=== PATIENT | male | born 1940 | race Caucasian/White ===

== ENCOUNTER 2023-04-15 10:43 | Inpatient (IN) | payer MEDICAID, MEDICARE, OTHER, SELFPAY ==
[~2023-04-15] VITALS: Ht 172.7 cm; Wt 77.3 kg
[2023-04-15 12:29] LABS: HEMATOCRIT 27.3 % (42.0-52.0); HEMOGLOBIN 8.8 g/dl (13.5-17.5); MEAN CORPUSCULAR HEMOGLOBIN 32.5 pg (27.0-33.0); MEAN CORPUSCULAR HGB CONC 32.2 g/dl (32.0-36.5); MEAN CORPUSCULAR VOLUME 100.7 fl (80.0-96.0); PLATELET COUNT, AUTOMATED 217 10^3/uL (150-450); RED BLOOD COUNT 2.71 10^6/uL (4.30-6.10); WHITE BLOOD COUNT 7.6 10^3/uL (4.0-10.0)
[2023-04-15 12:49] LABS: ALBUMIN 2.8 G/DL (3.2-5.2); BILIRUBIN,TOTAL 0.3 MG/DL (0.3-1.2); CALCIUM LEVEL 8.6 MG/DL (8.3-10.6); CREATININE FOR GFR 6.03 MG/DL (0.70-1.30); GLOMERULAR FILTRATION RATE 9.6 (>35); POTASSIUM SERUM 4.9 MMOL/L (3.5-5.1); TOTAL PROTEIN 6.3 G/DL (5.7-8.2)
[2023-04-15] MEDS ORDERED: MED REC IN PROGRESS XX SCH (13:25)
[2023-04-15 13:32] LABS: APPEARANCE, URINE HAZY (CLEAR); BACTERIA, URINE AUTO 1+ (NEGATIVE); BILIRUBIN, URINE AUTO NEGATIVE (NEGATIVE); BLOOD, URINE BLOOD 2+ (NEGATIVE); COLOR, URINE YELLOW (YELLOW); GLUCOSE, URINE (UA) AUTO NEGATIVE (NEGATIVE); KETONE, URINE AUTO NEGATIVE (NEGATIVE); LEUKOCYTE ESTERASE, URINE AUTO 2+ (NEGATIVE); NITRITE, URINE AUTO NEGATIVE (NEGATIVE); PROTEIN, URINE AUTO 3+ mg/dL (NEGATIVE); RBC, URINE AUTO 15 /HPF (0-3); SPECIFIC GRAVITY URINE AUTO 1.016 (1.002-1.035); SQUAMOUS EPITHELIAL CELL UR AU 0 /HPF (0-6); UROBILINOGEN, URINE AUTO 0.2 mg/dL (0.0-2.0); WBC, URINE AUTO 141 /HPF (0-3)
[2023-04-15] MEDS ORDERED: SILV50CR TOP (14:04)
[2023-04-15] MEDS ORDERED: GABA-1171 PO (14:04)
[2023-04-15] MEDS ORDERED: SM C81CH2 PO (14:04)
[2023-04-15] MEDS ORDERED: ACET650T15 PO (14:04)
[2023-04-15] MEDS ORDERED: SODI650T PO (14:04)
[2023-04-15] MEDS ORDERED: AMLO1TAB24 PO (14:04)
[2023-04-15] MEDS ORDERED: CARV3.12 PO (14:04)
[2023-04-15] MEDS ORDERED: ATOR40TA75 PO (14:04)
[2023-04-15] MEDS ORDERED: HOME MED LIST COMPLETE! XX SCH (14:10)
[2023-04-15 15:17] LABS: CK-MB VALUE MASS 1.5 NG/ML (<3.6)
[2023-04-15 15:22] LABS: FERRITIN 73.1 NG/ML (10.5-307.3)
[2023-04-15 15:30] LABS: MB/CK RELATIVE INDEX 2.41 (< OR =4); PERCENT SATURATION 25.3 % (19.7-50.0)
[2023-04-15] MEDS: cefTRIAXone SOD 1 GM in D5W MINI-BAG PLUS 50 ML IV SCH (16:03)
[2023-04-15 16:35] LABS: THYROXINE (T4) 7.9 UG/DL (4.5-10.9)
[2023-04-15 16:36] LABS: T UPTAKE 37.6 % (22.5-37.0); THYROID STIMULATING HORMONE 3.012 uIU/ML (0.55-4.78)
[2023-04-15 20:30] VITALS: BP 177/84; TEMP 97.3; O2SAT 95
[2023-04-15] MEDS: ACETAMINOPHEN 650MG ER TAB (TYLENOL ARTHRITIS) PO SCH (21:09)
[2023-04-15] MEDS: SODIUM BICARBONATE 325 MG TAB PO SCH (21:09)
[2023-04-15] MEDS: GABAPENTIN 100 MG CAP PO SCH (21:10)
[2023-04-15] MEDS: CARVedilol 3.125 MG TAB PO SCH (21:10)
[2023-04-16 06:00] VITALS: BP 165/89; TEMP 98.6; O2SAT 93
[2023-04-16 06:30] LABS: HEMATOCRIT 26.8 % (42.0-52.0); HEMOGLOBIN 8.7 g/dl (13.5-17.5); MEAN CORPUSCULAR HEMOGLOBIN 32.5 pg (27.0-33.0); MEAN CORPUSCULAR HGB CONC 32.5 g/dl (32.0-36.5); PLATELET COUNT, AUTOMATED 194 10^3/uL (150-450); RED BLOOD COUNT 2.68 10^6/uL (4.30-6.10); WHITE BLOOD COUNT 5.7 10^3/uL (4.0-10.0)
[2023-04-16 06:50] LABS: CALCIUM LEVEL 8.4 MG/DL (8.3-10.6); CREATININE FOR GFR 6.04 MG/DL (0.70-1.30); GLOMERULAR FILTRATION RATE 9.6 (>35); POTASSIUM SERUM 4.9 MMOL/L (3.5-5.1)
[2023-04-16 08:11] VITALS: BP 170/82
[2023-04-16] MEDS: GABAPENTIN 100 MG CAP PO SCH ×3 (08:37→20:35)
[2023-04-16] MEDS: SODIUM BICARBONATE 325 MG TAB PO SCH ×3 (08:38→20:35)
[2023-04-16] MEDS: ACETAMINOPHEN 650MG ER TAB (TYLENOL ARTHRITIS) PO SCH ×2 (08:38→20:36)
[2023-04-16] MEDS: ATORVASTATIN 20 MG TAB PO SCH (08:38)
[2023-04-16] MEDS: amLODIPine 5 MG TAB PO SCH (08:38)
[2023-04-16] MEDS: ASPIRIN 81MG CHEW TABLET PO SCH (08:38)
[2023-04-16] MEDS: CARVedilol 3.125 MG TAB PO SCH ×2 (08:38→20:35)
[2023-04-16 10:28] VITALS: BP 144/70
[2023-04-16 12:22] LABS: HEPATITIS B CORE ANTIBODY IGM NEGATIVE (NEGATIVE)
[2023-04-16 14:00] VITALS: BP 140/70; TEMP 97.7; O2SAT 93
[2023-04-16] MEDS: cefTRIAXone SOD 1 GM in D5W MINI-BAG PLUS 50 ML IV SCH (16:44)
[2023-04-16 21:36] VITALS: BP 142/76; TEMP 97.9; O2SAT 95
[2023-04-17 05:20] VITALS: BP 158/84; TEMP 97.9; O2SAT 93
[2023-04-17 06:20] LABS: HEMATOCRIT 25.6 % (42.0-52.0); HEMOGLOBIN 8.3 g/dl (13.5-17.5); MEAN CORPUSCULAR HEMOGLOBIN 32.7 pg (27.0-33.0); MEAN CORPUSCULAR HGB CONC 32.4 g/dl (32.0-36.5); MEAN CORPUSCULAR VOLUME 100.8 fl (80.0-96.0); PLATELET COUNT, AUTOMATED 196 10^3/uL (150-450); RED BLOOD COUNT 2.54 10^6/uL (4.30-6.10); WHITE BLOOD COUNT 6.4 10^3/uL (4.0-10.0)
[2023-04-17 06:43] LABS: CALCIUM LEVEL 8.2 MG/DL (8.3-10.6); CREATININE FOR GFR 6.02 MG/DL (0.70-1.30); GLOMERULAR FILTRATION RATE 9.6 (>35); INR 1.02; POTASSIUM SERUM 5.1 MMOL/L (3.5-5.1); PROTHROMBIN TIME 13.1 SECONDS (12.5-14.5)
[2023-04-17 06:44] LABS: PARTIAL THROMBOPLASTIN TIME 34.6 SECONDS (24.8-34.2)
[2023-04-17] MEDS ORDERED: LIDOCAINE W/EPINEPHRINE 1% 20ML VIAL As Ordered ONE (07:54)
[2023-04-17] MEDS ORDERED: MIDAZOLAM INJ 2MG/2ML VIAL As Ordered ONE (07:54)
[2023-04-17] MEDS ORDERED: HEPARIN 1,000UNITS/ML 10ML VIAL (FOR RADIOLOGY & DIALYSIS ONLY) As Ordered ONE (07:54)
[2023-04-17] MEDS ORDERED: fentaNYL 100 MCG/2 ML INJECTION As Ordered ONE (07:54)
[2023-04-17] MEDS ORDERED: ceFAZolin SOD 2 GM in IV 1 EA IV ONE (07:55)
[2023-04-17] MEDS ORDERED: ceFAZolin 2 GM/D5W 50 ML IV BAG As Ordered ONE (07:55)
[2023-04-17] MEDS ORDERED: hydrALAZINE 20MG/ML 1ML VIAL As Ordered ONE (08:13)
[2023-04-17] MEDS ORDERED: **hydrALAZINE** 10 MG TAB PO SCH (09:00)
[2023-04-17] MEDS ORDERED: cloNIDine 0.1MG TABLET PO ONE (09:20)
[2023-04-17] MEDS: ASPIRIN 81MG CHEW TABLET PO SCH (09:25)
[2023-04-17] MEDS: SODIUM BICARBONATE 325 MG TAB PO SCH (09:25)
[2023-04-17] MEDS: amLODIPine 5 MG TAB PO SCH (09:25)
[2023-04-17] MEDS: ATORVASTATIN 20 MG TAB PO SCH (09:25)
[2023-04-17] MEDS: CARVedilol 3.125 MG TAB PO SCH ×2 (09:26→20:26)
[2023-04-17] MEDS: GABAPENTIN 100 MG CAP PO SCH ×3 (09:26→20:25)
[2023-04-17] MEDS: ACETAMINOPHEN 650MG ER TAB (TYLENOL ARTHRITIS) PO SCH ×2 (09:26→20:25)
[2023-04-17] MEDS ORDERED: HEPARIN 1,000UNITS/ML 10ML VIAL (FOR RADIOLOGY & DIALYSIS ONLY) IV PRN (10:00)
[2023-04-17] MEDS ORDERED: HEPARIN 1,000UNITS/ML 10ML VIAL (FOR RADIOLOGY & DIALYSIS ONLY) XX SCH (10:00)
[2023-04-17] MEDS ORDERED: SODIUM CHLORIDE 0.9% 1000ML IV PRN (10:00)
[2023-04-17 13:08] LABS: HEPATITIS B CORE ANTIBODY IGG Negative (Negative); HEPATITIS C QUANTITATION HCV Not Detected IU/mL (.)
[2023-04-17 14:00] VITALS: BP 118/57; TEMP 97.7; O2SAT 94
[2023-04-17] MEDS: cefTRIAXone SOD 1 GM in D5W MINI-BAG PLUS 50 ML IV SCH (17:18)
[2023-04-17 20:07] VITALS: BP 133/68
[2023-04-17 21:00] VITALS: BP 138/66; TEMP 97.5; O2SAT 95
[2023-04-18 05:24] VITALS: BP 172/90
[2023-04-18] MEDS: GABAPENTIN 100 MG CAP PO SCH ×3 (05:39→21:31)
[2023-04-18] MEDS: ASPIRIN 81MG CHEW TABLET PO SCH (05:39)
[2023-04-18] MEDS: ACETAMINOPHEN 650MG ER TAB (TYLENOL ARTHRITIS) PO SCH ×2 (05:39→21:30)
[2023-04-18] MEDS: ATORVASTATIN 20 MG TAB PO SCH (05:39)
[2023-04-18] MEDS: amLODIPine 5 MG TAB PO SCH (05:40)
[2023-04-18] MEDS: CARVedilol 3.125 MG TAB PO SCH ×2 (05:41→21:31)
[2023-04-18] MEDS ORDERED: HEPARIN 1,000UNITS/ML 10ML VIAL (FOR RADIOLOGY & DIALYSIS ONLY) IV PRN (05:45)
[2023-04-18] MEDS ORDERED: HEPARIN 1,000UNITS/ML 10ML VIAL (FOR RADIOLOGY & DIALYSIS ONLY) XX SCH (05:45)
[2023-04-18] MEDS ORDERED: SODIUM CHLORIDE 0.9% 1000ML IV PRN (05:45)
[2023-04-18 06:21] LABS: HEMATOCRIT 26.8 % (42.0-52.0); HEMOGLOBIN 8.6 g/dl (13.5-17.5); MEAN CORPUSCULAR HEMOGLOBIN 32.5 pg (27.0-33.0); MEAN CORPUSCULAR HGB CONC 32.1 g/dl (32.0-36.5); MEAN CORPUSCULAR VOLUME 101.1 fl (80.0-96.0); PLATELET COUNT, AUTOMATED 189 10^3/uL (150-450); RED BLOOD COUNT 2.65 10^6/uL (4.30-6.10); WHITE BLOOD COUNT 6.7 10^3/uL (4.0-10.0)
[2023-04-18 06:24] VITALS: BP 138/70; TEMP 97.5; O2SAT 93
[2023-04-18 06:42] LABS: CREATININE FOR GFR 4.74 MG/DL (0.70-1.30); GLOMERULAR FILTRATION RATE 12.6 (>35); POTASSIUM SERUM 4.6 MMOL/L (3.5-5.1)
[2023-04-18] MEDS: LINEZOLID 600MG TABLET (ZYVOX) PO SCH ×2 (12:03→21:30)
[2023-04-18] MEDS: MUPIROCIN 2% OINT 22 GM TUBE TOP SCH ×2 (12:04→21:32)
[2023-04-18 14:00] VITALS: BP 138/86; TEMP 97.9; O2SAT 95
[2023-04-18] MEDS ORDERED: MIRALAX *UNIT DOSE* 17GM PACKET PO PRN (14:55)
[2023-04-18] MEDS ORDERED: SENOKOT S TAB PO PRN (14:55)
[2023-04-18 21:10] VITALS: BP 140/73; TEMP 97.9; O2SAT 94
[2023-04-19 04:40] VITALS: BP 154/80; TEMP 97.9; O2SAT 93
[2023-04-19 05:48] LABS: HEMATOCRIT 24.9 % (42.0-52.0); MEAN CORPUSCULAR HEMOGLOBIN 32.5 pg (27.0-33.0); MEAN CORPUSCULAR HGB CONC 32.1 g/dl (32.0-36.5); MEAN CORPUSCULAR VOLUME 101.2 fl (80.0-96.0); PLATELET COUNT, AUTOMATED 174 10^3/uL (150-450); RED BLOOD COUNT 2.46 10^6/uL (4.30-6.10); WHITE BLOOD COUNT 5.9 10^3/uL (4.0-10.0)
[2023-04-19 06:15] LABS: CALCIUM LEVEL 7.8 MG/DL (8.3-10.6); CREATININE FOR GFR 3.65 MG/DL (0.70-1.30); GLOMERULAR FILTRATION RATE 17.1 (>35); POTASSIUM SERUM 4.4 MMOL/L (3.5-5.1)
[2023-04-19] MEDS: ACETAMINOPHEN 650MG ER TAB (TYLENOL ARTHRITIS) PO SCH ×2 (09:17→21:12)
[2023-04-19] MEDS: amLODIPine 5 MG TAB PO SCH (09:17)
[2023-04-19] MEDS: ASPIRIN 81MG CHEW TABLET PO SCH (09:17)
[2023-04-19] MEDS: GABAPENTIN 100 MG CAP PO SCH ×3 (09:17→21:12)
[2023-04-19] MEDS: ATORVASTATIN 20 MG TAB PO SCH (09:18)
[2023-04-19] MEDS: LINEZOLID 600MG TABLET (ZYVOX) PO SCH ×2 (09:18→21:12)
[2023-04-19] MEDS: CARVedilol 3.125 MG TAB PO SCH ×2 (09:18→21:13)
[2023-04-19] MEDS: MUPIROCIN 2% OINT 22 GM TUBE TOP SCH ×2 (09:19→21:14)
[2023-04-19 14:00] VITALS: BP 109/56; TEMP 97.3; O2SAT 94
[2023-04-19 22:00] VITALS: BP 141/71; TEMP 97.5; O2SAT 94
[2023-04-20] MEDS: ACETAMINOPHEN 650MG ER TAB (TYLENOL ARTHRITIS) PO SCH ×2 (05:03→21:37)
[2023-04-20] MEDS: ASPIRIN 81MG CHEW TABLET PO SCH (05:03)
[2023-04-20] MEDS: LINEZOLID 600MG TABLET (ZYVOX) PO SCH ×2 (05:03→21:36)
[2023-04-20] MEDS: GABAPENTIN 100 MG CAP PO SCH ×3 (05:03→21:36)
[2023-04-20] MEDS: ATORVASTATIN 20 MG TAB PO SCH (05:03)
[2023-04-20] MEDS: amLODIPine 5 MG TAB PO SCH (05:07)
[2023-04-20] MEDS: CARVedilol 3.125 MG TAB PO SCH ×2 (05:08→21:36)
[2023-04-20] MEDS: MUPIROCIN 2% OINT 22 GM TUBE TOP SCH ×2 (05:09→21:32)
[2023-04-20 05:53] LABS: HEMATOCRIT 25.2 % (42.0-52.0); HEMOGLOBIN 8.2 g/dl (13.5-17.5); MEAN CORPUSCULAR HEMOGLOBIN 33.1 pg (27.0-33.0); MEAN CORPUSCULAR HGB CONC 32.5 g/dl (32.0-36.5); MEAN CORPUSCULAR VOLUME 101.6 fl (80.0-96.0); PLATELET COUNT, AUTOMATED 173 10^3/uL (150-450); RED BLOOD COUNT 2.48 10^6/uL (4.30-6.10); WHITE BLOOD COUNT 4.8 10^3/uL (4.0-10.0)
[2023-04-20] MEDS ORDERED: HEPARIN 1,000UNITS/ML 10ML VIAL (FOR RADIOLOGY & DIALYSIS ONLY) IV PRN (06:10)
[2023-04-20] MEDS ORDERED: DARBEPOETIN 100MCG/0.5ML *DIALYSIS* SYRINGE IV SCH (06:10)
[2023-04-20] MEDS ORDERED: SODIUM CHLORIDE 0.9% 1000ML IV PRN (06:10)
[2023-04-20] MEDS ORDERED: HEPARIN 1,000UNITS/ML 10ML VIAL (FOR RADIOLOGY & DIALYSIS ONLY) XX SCH (06:10)
[2023-04-20 06:11] LABS: CREATININE FOR GFR 4.32 MG/DL (0.70-1.30); GLOMERULAR FILTRATION RATE 14.1 (>35); POTASSIUM SERUM 4.9 MMOL/L (3.5-5.1)
[2023-04-20 06:20] VITALS: BP 124/74; TEMP 97.7; O2SAT 93
[2023-04-20 14:00] VITALS: BP 124/74; TEMP 97.7; O2SAT 96
[2023-04-20 20:55] VITALS: BP 157/74; TEMP 97.5; O2SAT 95
[2023-04-21] MEDS: MUPIROCIN 2% OINT 22 GM TUBE TOP SCH ×2 (05:19→20:24)
[2023-04-21] MEDS: ACETAMINOPHEN 650MG ER TAB (TYLENOL ARTHRITIS) PO SCH ×2 (05:20→20:24)
[2023-04-21] MEDS: LINEZOLID 600MG TABLET (ZYVOX) PO SCH ×2 (05:21→20:24)
[2023-04-21] MEDS: GABAPENTIN 100 MG CAP PO SCH ×3 (05:21→20:23)
[2023-04-21] MEDS: ASPIRIN 81MG CHEW TABLET PO SCH ×2 (05:21→10:24)
[2023-04-21] MEDS: ATORVASTATIN 20 MG TAB PO SCH ×2 (05:22→10:24)
[2023-04-21 05:23] VITALS: TEMP 98.1; O2SAT 94
[2023-04-21] MEDS: CARVedilol 3.125 MG TAB PO SCH ×2 (05:23→20:24)
[2023-04-21 05:51] LABS: HEMOGLOBIN 8.1 g/dl (13.5-17.5); MEAN CORPUSCULAR HEMOGLOBIN 33.2 pg (27.0-33.0); MEAN CORPUSCULAR HGB CONC 32.4 g/dl (32.0-36.5); MEAN CORPUSCULAR VOLUME 102.5 fl (80.0-96.0); PLATELET COUNT, AUTOMATED 189 10^3/uL (150-450); RED BLOOD COUNT 2.44 10^6/uL (4.30-6.10); WHITE BLOOD COUNT 4.3 10^3/uL (4.0-10.0)
[2023-04-21 06:00] VITALS: BP 155/74; TEMP 98.1; O2SAT 94
[2023-04-21 06:13] LABS: BLOOD UREA NITROGEN 25 MG/DL (9-23); CALCIUM LEVEL 8.1 MG/DL (8.3-10.6); CARBON DIOXIDE LEVEL 24 MMOL/L (20-31); CHLORIDE LEVEL 105 MMOL/L (98-107); CREATININE FOR GFR 3.09 MG/DL (0.70-1.30); GLOMERULAR FILTRATION RATE 20.7 (>35); GLUCOSE, FASTING 78 MG/DL (74-106); POTASSIUM SERUM 4.6 MMOL/L (3.5-5.1); SODIUM LEVEL 137 MMOL/L (136-145)
[2023-04-21] MEDS: amLODIPine 5 MG TAB PO SCH (10:26)
[2023-04-21] MEDS ORDERED: SODIUM CHLORIDE 0.9% 1000ML IV PRN (12:20)
[2023-04-21] MEDS ORDERED: HEPARIN 1,000UNITS/ML 10ML VIAL (FOR RADIOLOGY & DIALYSIS ONLY) XX SCH (12:20)
[2023-04-21] MEDS ORDERED: HEPARIN 1,000UNITS/ML 10ML VIAL (FOR RADIOLOGY & DIALYSIS ONLY) IV PRN (12:20)
[2023-04-21] MEDS: HEPARIN SOD (PORCINE) 5000UNITS/ML 1ML VIAL/SYRINGE SQ SCH ×2 (14:00→20:25)
[2023-04-21 16:26] LABS: HEPATITIS B SURFACE ANTIBODY NEGATIVE (POSITIVE)
[2023-04-21 17:30] VITALS: BP 167/71; TEMP 97.9; O2SAT 95
[2023-04-21 21:13] VITALS: BP 154/69; TEMP 97.9; O2SAT 96
[2023-04-22] MEDS: HEPARIN SOD (PORCINE) 5000UNITS/ML 1ML VIAL/SYRINGE SQ SCH (05:01)
[2023-04-22 05:36] VITALS: BP 160/69; TEMP 98.1; O2SAT 94
[2023-04-22 05:55] LABS: HEMATOCRIT 25.8 % (42.0-52.0); HEMOGLOBIN 8.2 g/dl (13.5-17.5); MEAN CORPUSCULAR HEMOGLOBIN 32.7 pg (27.0-33.0); MEAN CORPUSCULAR HGB CONC 31.8 g/dl (32.0-36.5); MEAN CORPUSCULAR VOLUME 102.8 fl (80.0-96.0); PLATELET COUNT, AUTOMATED 199 10^3/uL (150-450); RED BLOOD COUNT 2.51 10^6/uL (4.30-6.10); WHITE BLOOD COUNT 3.4 10^3/uL (4.0-10.0)
[2023-04-22 06:20] LABS: CALCIUM LEVEL 8.5 MG/DL (8.3-10.6); CREATININE FOR GFR 2.47 MG/DL (0.70-1.30); GLOMERULAR FILTRATION RATE 26.8 (>35); POTASSIUM SERUM 4.6 MMOL/L (3.5-5.1)
[2023-04-22] MEDS: ACETAMINOPHEN 650MG ER TAB (TYLENOL ARTHRITIS) PO SCH (09:23)
[2023-04-22 09:24] VITALS: BP 160/69
[2023-04-22] MEDS: GABAPENTIN 100 MG CAP PO SCH (09:24)
[2023-04-22] MEDS: LINEZOLID 600MG TABLET (ZYVOX) PO SCH (09:24)
[2023-04-22] MEDS: amLODIPine 5 MG TAB PO SCH (09:24)
[2023-04-22] MEDS: MUPIROCIN 2% OINT 22 GM TUBE TOP SCH (09:25)
[2023-04-22] MEDS: CARVedilol 3.125 MG TAB PO SCH (09:25)
[2023-04-22] MEDS ORDERED: LISI10TA22 PO (12:58)
[2023-04-22] MEDS ORDERED: LINE1TAB6 PO (12:58)
[2023-04-22 14:00] VITALS: BP 148/78; TEMP 97.7; O2SAT 96
== END 2023-04-22 14:44 | disposition hospice, home (50) | DRG 683 ==
LOC: M ED 10:43 → EEVIPCON 14:34 → M ED INP 14:34 → M MSPAV 20:31
PROVIDERS: ADMIT General Practice; ATTEND Family Medicine
PROC: B246ZZZ Ultrasonography of Right and Left Heart (ICD-10-PCS; 2023-04-17)
PROC: 05HM33Z Insertion of Infusion Device into Right Internal Jugular Vein, Percutaneous Approach (ICD-10-PCS; principal; 2023-04-17 07:51)
PROC: 5A1D70Z Performance of Urinary Filtration, Intermittent, Less than 6 Hours Per Day (ICD-10-PCS; 2023-04-18)
DX: N18.6 End stage renal disease (principal); I13.2 Hypertensive heart and chronic kidney disease with heart failure and with stage 5 chronic kidney disease, or end stage renal disease; J90 Pleural effusion, not elsewhere classified; N39.0 Urinary tract infection, site not specified; E87.20 Acidosis, unspecified; I69.351 Hemiplegia and hemiparesis following cerebral infarction affecting right dominant side; I50.32 Chronic diastolic (congestive) heart failure; N17.9 Acute kidney failure, unspecified; M06.9 Rheumatoid arthritis, unspecified; E78.5 Hyperlipidemia, unspecified; M17.0 Bilateral primary osteoarthritis of knee; E04.1 Nontoxic single thyroid nodule; D63.1 Anemia in chronic kidney disease; Z86.718 Personal history of other venous thrombosis and embolism; Z79.82 Long term (current) use of aspirin; Z79.899 Other long term (current) drug therapy; Z20.822 Contact with and (suspected) exposure to COVID-19; Z96.642 Presence of left artificial hip joint; Z95.828 Presence of other vascular implants and grafts; Z95.2 Presence of prosthetic heart valve; Z96.653 Presence of artificial knee joint, bilateral

== ENCOUNTER → 2023-07-21 | Outpatient (CLI) | payer MEDICAID, MEDICARE ==
[~2023-07-21] MED LIST: ACET650T15 PO; AMLO1TAB24 PO; ATOR40TA75 PO; CARV3.12 PO; GABA-1171 PO; LINE1TAB6 PO; LISI10TA22 PO; SILV50CR TOP; SM C81CH2 PO; SODI650T PO
== END ==
LOC: M RAD 12:03
PROVIDERS: ATTEND Internal Medicine Nephrology
DX: N18.6 End stage renal disease (principal)

== ENCOUNTER 2023-12-11 12:10 | Observation (INO) | payer MEDICARE ==
[~2023-12-11] VITALS: Ht 172.7 cm; Wt 65.1 kg
[2023-12-11 13:04] LABS: BASO % 0.2 % (0.0-1.0); EOS % 0.1 % (0.0-3.0); HEMATOCRIT 33.1 % (42.0-52.0); HEMOGLOBIN 10.9 g/dl (13.5-17.5); LYMPH # 0.9 10^3/uL (1.5-5.0); LYMPH % 7.8 % (24.0-44.0); MEAN CORPUSCULAR HEMOGLOBIN 31.6 pg (27.0-33.0); MEAN CORPUSCULAR HGB CONC 32.9 g/dl (32.0-36.5); MEAN CORPUSCULAR VOLUME 95.9 fl (80.0-96.0); MONO # 0.7 10^3/uL (0.0-0.8); MONO % 5.9 % (2.0-8.0); NEUTROPHILS # 10.2 10^3/uL (1.5-8.5); NEUTROPHILS % 85.4 % (36.0-66.0); PLATELET COUNT, AUTOMATED 202 10^3/uL (150-450); RED BLOOD COUNT 3.45 10^6/uL (4.30-6.10)
[2023-12-11 13:42] LABS: ALBUMIN 2.1 G/DL (3.2-5.2); ALKALINE PHOSPHATASE 79 U/L (46-116); ALT/SGPT < 9 U/L (7.0-40); AST/SGOT 24 U/L (<34); BILIRUBIN,DIRECT 0.2 MG/DL (<0.4); BILIRUBIN,TOTAL 0.5 MG/DL (0.3-1.2); BLOOD UREA NITROGEN 24 MG/DL (9-23); CALCIUM LEVEL 8.3 MG/DL (8.3-10.6); CARBON DIOXIDE LEVEL 31 MMOL/L (20-31); CHLORIDE LEVEL 97 MMOL/L (98-107); CK-MB VALUE MASS 1.1 NG/ML (<3.6); CPK CREATINE PHOSPHOKINASE 67 U/L (46-171); CREATININE FOR GFR 0.92 MG/DL (0.70-1.30); GLOMERULAR FILTRATION RATE > 60.0 (>35); GLUCOSE, FASTING 91 MG/DL (74-106); MB/CK RELATIVE INDEX 1.64 (< OR =4); POTASSIUM SERUM 4.2 MMOL/L (3.5-5.1); SODIUM LEVEL 130 MMOL/L (136-145); TOTAL PROTEIN 6.3 G/DL (5.7-8.2)
[2023-12-11 13:56] LABS: PROCALCITONIN 1.18 ng/ml
[2023-12-11] MEDS: VANCOMYCIN HCL 1,000 MG, VIAL MATE ADAPTER 1 EACH in NS 250 ML IV ONE (14:36)
[2023-12-11 14:52] LABS: CK-MB VALUE MASS 1.2 NG/ML (<3.6)
[2023-12-11 14:57] LABS: MB/CK RELATIVE INDEX 1.62 (< OR =4)
[2023-12-11] MEDS ORDERED: ACETAMINOPHEN TAB 650MG DOSE (2X325MG) PO PRN (15:50)
[2023-12-11] MEDS ORDERED: MOM 30ML SUSPENSION UDC PO PRN (15:50)
[2023-12-11] MEDS: NS 1,000 ML IV SCH (16:54)
[2023-12-11] MEDS ORDERED: FLUID PLACE HOLDER IV SCH (16:55)
[2023-12-11] MEDS ORDERED: VANCOMYCIN HCL IV SCH (16:55)
[2023-12-11] MEDS: VANCOMYCIN HCL 1,000 MG, VIAL MATE ADAPTER 1 EACH in D5W 250 ML IV SCH (21:45)
[2023-12-11 22:50] VITALS: BP 130/64; TEMP 99.5; O2SAT 97
[2023-12-11] MEDS: DOCUSATE SODIUM 100MG CAPSULE PO SCH (23:38)
[2023-12-11] MEDS ORDERED: MIRT1TAB PO (23:47)
[2023-12-11] MEDS ORDERED: ATOR1TAB21 PO (23:47)
[2023-12-11] MEDS ORDERED: BUSP5TA PO (23:47)
[2023-12-11] MEDS ORDERED: LISI10TA22 PO (23:47)
[2023-12-11] MEDS ORDERED: CLOP75TA2 PO (23:47)
[2023-12-11] MEDS ORDERED: HOME MED LIST COMPLETE! XX SCH (23:55)
[2023-12-12] MEDS ORDERED: HOME MED LIST COMPLETE! XX SCH (00:15)
[2023-12-12 05:00] VITALS: BP 102/53; TEMP 98.1; O2SAT 91
[2023-12-12 08:48] LABS: BASO % 0.4 % (0.0-1.0); EOS # 0.1 10^3/uL (0.0-0.5); EOS % 0.9 % (0.0-3.0); HEMATOCRIT 27.8 % (42.0-52.0); HEMOGLOBIN 9.1 g/dl (13.5-17.5); LYMPH # 1.1 10^3/uL (1.5-5.0); LYMPH % 19.4 % (24.0-44.0); MEAN CORPUSCULAR HGB CONC 32.7 g/dl (32.0-36.5); MEAN CORPUSCULAR VOLUME 94.6 fl (80.0-96.0); MONO # 0.4 10^3/uL (0.0-0.8); MONO % 7.9 % (2.0-8.0); NEUTROPHILS # 3.9 10^3/uL (1.5-8.5); PLATELET COUNT, AUTOMATED 166 10^3/uL (150-450); RED BLOOD COUNT 2.94 10^6/uL (4.30-6.10); WHITE BLOOD COUNT 5.5 10^3/uL (4.0-10.0)
[2023-12-12] MEDS: CARVedilol 3.125 MG TAB PO SCH (09:00)
[2023-12-12] MEDS: HEPARIN SOD (PORCINE) 5000UNITS/ML 1ML VIAL/SYRINGE SC SCH (09:00)
[2023-12-12 09:12] LABS: CALCIUM LEVEL 8.2 MG/DL (8.3-10.6); CREATININE FOR GFR 1.57 MG/DL (0.70-1.30); GLOMERULAR FILTRATION RATE 45.3 (>35); MAGNESIUM LEVEL 1.7 MG/DL (1.8-2.4); POTASSIUM SERUM 3.4 MMOL/L (3.5-5.1)
[2023-12-12] MEDS: ASPIRIN 81MG ENTERIC TABLET PO SCH (10:10)
[2023-12-12] MEDS: ATORVASTATIN 20 MG TAB PO SCH (10:10)
[2023-12-12] MEDS: CLOPIDOGREL 75 MG TAB PO SCH (10:11)
[2023-12-12] MEDS: KCL 10MEQ/100ML SWI (KRUN) 10 MEQ in IV 1 EA IV ONE (11:58)
[2023-12-12] MEDS: busPIRone 5 MG TAB PO SCH (13:32)
[2023-12-12] MEDS: GABAPENTIN 100 MG CAP PO SCH (13:32)
[2023-12-12 14:20] VITALS: BP 100/60; TEMP 98.8; O2SAT 96
[2023-12-12 17:19] LABS: CALCIUM LEVEL 8.3 MG/DL (8.3-10.6); CREATININE FOR GFR 1.83 MG/DL (0.70-1.30); GLOMERULAR FILTRATION RATE 37.9 (>35); POTASSIUM SERUM 3.8 MMOL/L (3.5-5.1)
[2023-12-12 20:20] VITALS: BP 107/61; TEMP 98.4; O2SAT 94
[2023-12-12 20:45] LABS: VANCOMYCIN LEVEL TROUGH 23.6 UG/ML (10.0-20.0)
[2023-12-12] MEDS ORDERED: VANCOMYCIN INTERMITTENT/PULSE DOSING BY CLINICAL PHARMACIST PER DOSING PROTOCOL XX SCH (21:00)
[2023-12-12] MEDS: MIRTAZAPINE 7.5MG PER 1/2 TABLET PO SCH (21:58)
[2023-12-12 23:00] LABS: CALCIUM LEVEL 8.2 MG/DL (8.3-10.6); CREATININE FOR GFR 1.88 MG/DL (0.70-1.30); GLOMERULAR FILTRATION RATE 36.8 (>35); POTASSIUM SERUM 3.9 MMOL/L (3.5-5.1)
[2023-12-13 04:32] LABS: HEMOGLOBIN 8.9 g/dl (13.5-17.5); MEAN CORPUSCULAR HEMOGLOBIN 31.6 pg (27.0-33.0); MEAN CORPUSCULAR VOLUME 95.7 fl (80.0-96.0); PLATELET COUNT, AUTOMATED 166 10^3/uL (150-450); RED BLOOD COUNT 2.82 10^6/uL (4.30-6.10); WHITE BLOOD COUNT 4.3 10^3/uL (4.0-10.0)
[2023-12-13 05:04] LABS: MAGNESIUM LEVEL 1.8 MG/DL (1.8-2.4)
[2023-12-13 05:05] LABS: CREATININE FOR GFR 2.15 MG/DL (0.70-1.30); GLOMERULAR FILTRATION RATE 31.5 (>35); POTASSIUM SERUM 3.9 MMOL/L (3.5-5.1); VANCOMYCIN RANDOM 22.5 UG/ML
[2023-12-13 05:30] VITALS: BP 141/71; TEMP 97.7; O2SAT 98
[2023-12-13 10:53] LABS: CALCIUM LEVEL 8.2 MG/DL (8.3-10.6); CREATININE FOR GFR 2.21 MG/DL (0.70-1.30); GLOMERULAR FILTRATION RATE 30.5 (>35); POTASSIUM SERUM 3.9 MMOL/L (3.5-5.1)
[2023-12-13 14:23] VITALS: BP 106/59; TEMP 98.8; O2SAT 97
[2023-12-13 17:00] LABS: CALCIUM LEVEL 8.6 MG/DL (8.3-10.6); CREATININE FOR GFR 2.34 MG/DL (0.70-1.30); GLOMERULAR FILTRATION RATE 28.6 (>35); POTASSIUM SERUM 4.5 MMOL/L (3.5-5.1)
[2023-12-13 22:32] LABS: CREATININE FOR GFR 2.49 MG/DL (0.70-1.30); GLOMERULAR FILTRATION RATE 26.6 (>35); POTASSIUM SERUM 4.8 MMOL/L (3.5-5.1)
[2023-12-14 03:44] LABS: HEMOGLOBIN 9.2 g/dl (13.5-17.5); MEAN CORPUSCULAR HEMOGLOBIN 31.5 pg (27.0-33.0); MEAN CORPUSCULAR HGB CONC 32.9 g/dl (32.0-36.5); MEAN CORPUSCULAR VOLUME 95.9 fl (80.0-96.0); PLATELET COUNT, AUTOMATED 166 10^3/uL (150-450); RED BLOOD COUNT 2.92 10^6/uL (4.30-6.10); WHITE BLOOD COUNT 3.5 10^3/uL (4.0-10.0)
[2023-12-14 04:15] LABS: MAGNESIUM LEVEL 1.8 MG/DL (1.8-2.4); VANCOMYCIN RANDOM 19.9 UG/ML
[2023-12-14 04:16] LABS: CALCIUM LEVEL 8.2 MG/DL (8.3-10.6); CREATININE FOR GFR 2.6 MG/DL (0.70-1.30); GLOMERULAR FILTRATION RATE 25.3 (>35); POTASSIUM SERUM 4.8 MMOL/L (3.5-5.1)
[2023-12-14] MEDS ORDERED: HEPARIN 1,000UNITS/ML 10ML VIAL (FOR RADIOLOGY & DIALYSIS ONLY) XX SCH (06:50)
[2023-12-14] MEDS ORDERED: SODIUM CHLORIDE 0.9% 1000ML IV PRN (06:50)
[2023-12-14] MEDS ORDERED: HEPARIN 1,000UNITS/ML 10ML VIAL (FOR RADIOLOGY & DIALYSIS ONLY) IV PRN (06:50)
[2023-12-14] MEDS: DARBEPOETIN 100MCG/0.5ML *DIALYSIS* SYRINGE IV SCH (08:45)
[2023-12-14] MEDS ORDERED: VANCOMYCIN HCL 1,000 MG, VIAL MATE ADAPTER 1 EACH in D5W 250 ML IV SCH (12:00)
[2023-12-14 14:00] VITALS: BP 124/67; TEMP 98.1; O2SAT 98
[2023-12-14 20:20] VITALS: BP 155/61; TEMP 98.2; O2SAT 97
[2023-12-15 06:17] VITALS: BP 151/60; TEMP 98.2; O2SAT 96
[2023-12-15 07:06] LABS: HEMATOCRIT 31.1 % (42.0-52.0); MEAN CORPUSCULAR HEMOGLOBIN 31.3 pg (27.0-33.0); MEAN CORPUSCULAR HGB CONC 32.2 g/dl (32.0-36.5); MEAN CORPUSCULAR VOLUME 97.2 fl (80.0-96.0); PLATELET COUNT, AUTOMATED 196 10^3/uL (150-450); WHITE BLOOD COUNT 3.3 10^3/uL (4.0-10.0)
[2023-12-15 07:44] LABS: CALCIUM LEVEL 8.6 MG/DL (8.3-10.6); CREATININE FOR GFR 1.87 MG/DL (0.70-1.30); POTASSIUM SERUM 4.4 MMOL/L (3.5-5.1)
[2023-12-15] MEDS ORDERED: LISI10TA22 PO (08:30)
[2023-12-15 08:39] VITALS: BP 161/80
== END 2023-12-15 14:13 ==
LOC: M ED 12:10 → EDBD 12:10 → EEVIPCON 14:55 → M ED INP 14:55 → CANRESERV 20:39 → ENRESERV 20:39 → M MSPAV 22:50
PROVIDERS: ADMIT Internal Medicine; ATTEND Internal Medicine
DX: R50.9 Fever, unspecified (principal); N18.6 End stage renal disease; Z99.2 Dependence on renal dialysis; I69.351 Hemiplegia and hemiparesis following cerebral infarction affecting right dominant side; I11.0 Hypertensive heart disease with heart failure; E78.5 Hyperlipidemia, unspecified; I50.30 Unspecified diastolic (congestive) heart failure; Z95.2 Presence of prosthetic heart valve; Z86.718 Personal history of other venous thrombosis and embolism; M06.9 Rheumatoid arthritis, unspecified; D63.1 Anemia in chronic kidney disease; F39 Unspecified mood [affective] disorder; I71.20 Thoracic aortic aneurysm, without rupture, unspecified; K57.90 Diverticulosis of intestine, part unspecified, without perforation or abscess without bleeding; R00.0 Tachycardia, unspecified; R53.1 Weakness; M19.90 Unspecified osteoarthritis, unspecified site; Z84.1 Family history of disorders of kidney and ureter; Z82.0 Family history of epilepsy and other diseases of the nervous system; Z79.899 Other long term (current) drug therapy; Z79.82 Long term (current) use of aspirin; Z79.02 Long term (current) use of antithrombotics/antiplatelets
CPT/HCPCS: 36415; 71046; 80047; 80048; 80076; 80202; 81001; 82550; 82553; 83605; 83735; 84145; 84443; 84484; 85025; 85027; 87040; 87486; 87581; 87633; 87641; 87798; 90935; 93005; 96361; 96365; 96366; 96367; 99285; G0378; J0882; J3370